=== PATIENT | male | born 1970 | race Caucasian/White ===

== ENCOUNTER 2017-07-21 01:28 | Emergency (ER) | payer OTHER ==
[2017-07-21 01:43] VITALS: TEMP 98.3
[2017-07-21] MEDS ORDERED: Sodium Chloride 0.9% 1,000 ML IV ONE (01:57)
--- NOTE | 2017-07-21 02:02 | C.PDOC ---
History Of Present Illness 46 year old male presents to the ED complaining of chills, body aches and diarrhea beginning this morning. Denies vomiting, cough, fever. Patient believes symptoms are related to shot of heroin he took about 2 days ago. Chief Complaint (Nursing): Flu-like Symptoms History Per: Patient History/Exam Limitations: no limitations Onset/Duration Of Symptoms: Days Current Symptoms Are (Timing): Still Present Location Of Pain: None Past Medical History Reviewed: Historical Data, Nursing Documentation, Vital Signs Vital Signs: Last Vital Signs Temp 98.3 F 07/21/17 01:37 Pulse 92 H 07/21/17 04:00 Resp 20 07/21/17 04:00 BP 158/72 H 07/21/17 04:00 Pulse Ox 97 07/21/17 04:00 Family History: States: No Known Family Hx - Social History Hx Tobacco Use: Yes Hx Alcohol Use: No Hx Substance Use: No - Immunization History Hx Tetanus Toxoid Vaccination: Yes Hx Influenza Vaccination: No Hx Pneumococcal Vaccination: No Review Of Systems Except As Marked, All Systems Reviewed And Found Negative. Constitutional: Positive for: Chills, Other (myalgia) Gastrointestinal: Positive for: Diarrhea Physical Exam - Physical Exam Appears: Non-toxic, Other (appears to be rocking on stretcher) Skin: Dry, Other (fairly recent needle trap feliciano) Eye(s): bilateral: Normal Inspection Ear(s): Bilateral: Normal Nose: Normal Oral Mucosa: Moist Throat: Normal Neck: Normal, Supple Respiratory: Normal Breath Sounds, No Rales, No Rhonchi, No Wheezing Gastrointestinal/Abdominal: Normal Exam, Soft, No Tenderness Extremity: Other (spasms of lower extremities. Complaining of diffuse extremity pain. ) Neurological/Psych: Oriented x3, Normal Speech, Normal Cognition, Normal Motor, Normal Sensation, Normal Reflexes Gait: Steady ED Course And Treatment - Laboratory Results Result Diagrams: 07/21/17 02:22 07/21/17 02:22 O2 Sat by Pulse Oximetry: 96 (RA) Pulse Ox Interpretation: Normal Medical Decision Making Medical Decision Making: Time: 156 Plan: -- Alcohol Serum -- CMP -- Drug Screen Urine -- CBC with differentials -- Ativan 1 mg IVP -- Catapres 0.1 mg PO -- Compazine 10mg IVP -- Urinalysis Disposition - Disposition Referrals: [facility] [Outside] Disposition: HOME/ ROUTINE Disposition Time: 06:22 Condition: GOOD Prescriptions: cloNIDine [Catapres] 0.1 mg PO TID #15 tab LORazepam [Ativan] 1 mg PO TID #15 tab Prochlorperazine [Compazine Rectal Supp] 25 mg RC BID #10 sup Instructions: Drug Abuse and Drug Addiction (DC) Forms: [employer] (Georgian) Print Language: PERSIAN - Clinical Impression Clinical Impression: Heroin use - Scribe Statement The provider has reviewed the documentation as recorded by the Maycol Louis Provider Attestation: All medical record entries made by the Maycol were at my direction and personally dictated by me. I have reviewed the chart and agree that the record accurately reflects my personal performance of the history, physical exam, medical decision making, and the department course for this patient. I have also personally directed, reviewed, and agree with the discharge instructions and disposition.
[2017-07-21] MEDS ORDERED: Sodium Chloride 0.9% 1,000 ML ONE (02:22)
[2017-07-21 02:25] LABS: BASO % 0.6 % (0.0-2.0); EOS # 0.1 K/uL (0.0-0.7); EOS % 0.8 % (0.0-4.0); HEMOGLOBIN 13.6 g/dL (12.0-18.0); LYMPH # 2.4 K/uL (1.0-4.3); MEAN CORPUSCULAR HEMOGLOBIN 25.8 pg (27.0-31.0); MEAN CORPUSCULAR HGB CONC 33.1 g/dL (33.0-37.0); MEAN PLATELET VOLUME 7.7 fL (7.2-11.7); MONO # 0.7 K/uL (0.0-0.8); MONO % 12.1 % (0.0-10.0); NEUT # 2.9 K/uL (1.8-7.0); NEUT % 47.5 % (50.0-75.0); NRBC % 0.1 % (0.0-2.0); RBC 5.28 Mil/uL (4.40-5.90); RED CELL DISTRIBUTION WIDTH 14.2 % (11.5-14.5); WHITE BLOOD COUNT 6.1 K/uL (4.8-10.8)
[2017-07-21 02:37] LABS: ALB/GLOB RATIO 1.1 (1.0-2.1); ALBUMIN 3.8 g/dL (3.5-5.0); ALT/SGPT 27 U/L (21-72); AST/SGOT 24 U/L (17-59); BLOOD UREA NITROGEN 11 mg/dL (9-20); CALCIUM 9.2 mg/dl (8.6-10.4); GFR AFRICAN-AMERICAN > 60; GFR NON-AFRICAN AMERICAN > 60
[2017-07-21 03:18] LABS: SQUAMOUS EPITHIAL < 1 /hpf (0-5); URINE BACTERIA RARE (<OCC); URINE BILIRUBIN NEGATIVE (NEGATIVE); URINE BLOOD NEGATIVE (NEGATIVE); URINE CLARITY Clear (Clear); URINE COLOR Straw (YELLOW); URINE GLUCOSE (UA) NORMAL (Normal); URINE LEUKOCYTE ESTERASE NEG Leu/uL (Negative); URINE PROTEIN NEGATIVE (NEGATIVE); URINE UROBILINOGEN NORMAL mg/dL (0.2-1.0)
[2017-07-21 03:30] LABS: BARBITURATES, UR NEGATIVE (NEGATIVE); BENZODIAZEPINES, UR NEGATIVE (NEGATIVE); OPIATES, UR POSITIVE (NEGATIVE); PHENCYCLIDINE, UR NEGATIVE (NEGATIVE)
[2017-07-21 05:34] VITALS: BP 158/72; PULSE 92; RESP 20
[2017-07-21 06:23] VITALS: O2SAT 96
== END 2017-07-21 04:00 | disposition home or self-care (01) ==
LOC: C.ER 01:28
DX: F11.90 Opioid use, unspecified, uncomplicated (principal)
CPT/HCPCS: 80053; 80320; 80324; 80345; 80346; 80349; 80353; 80358; 80361; 81001; 83992; 85025; 96374; 96375; 99284; J0780; J2060; J7040